=== PATIENT | female | born 1930 | race Caucasian/White ===

== ENCOUNTER 2019-02-20 18:01 | Emergency (ER) | payer MEDICARE, OTHER ==
[~2019-02-20] VITALS: Ht 149.9 cm; Wt 61.2 kg
--- OUTSIDE RECORDS SUMMARY | 2019-02-20 18:05 | XMS REPORT ---
Author Author ARMEN ROSAS [facility] Address [address] [place] [address] Care Team Providers Care Prover Name Role Phone ARMEN ROSAS Unavailable PROBLEMS Unknown Problems ALLERGIES No Information ENCOUNTERS Encounter Location Date Diagnosis [facility] [id number] [place] [phone] Jun, Encounter for immunization Z23 [facility] [id number] [place] [phone] Jun, Encounter for immunization Z23 [facility] [id number] [place] [phone] Jun, [facility] [id number] [place] [phone] Jun, [facility] [id number] [place] [phone] Jun, [facility] [id number] [place] [phone] Jun, [facility] [id number] [place] [phone] Jul, IMMUNIZATIONS Vaccine Route Administration Date Status FLULAVAL QUAD 0.5ML (6 MO & UP) 2018 IM Intramuscular Jun 30, 2018 Administered SOCIAL HISTORY Never Assessed REASON FOR VISIT Flu shot PLAN OF CARE VITAL SIGNS MEDICATIONS Unknown Medications RESULTS No Results PROCEDURES Procedure Date Ordered Result Body Site FLULAVAL QUAD 0.5ML (6 MO & UP) 2018 Jun 30, 2018 ADMN FLU VAC NO FEE SCHED SAME DAY Jun 30, 2018 SINGLE IMMUNIZATION ADMIN Jun 30, 2018 INSTRUCTIONS MEDICATIONS ADMINISTERED No Known Medications
[2019-02-20] MEDS ORDERED: NS IV 1000 ML 1,000 ML IV ONE ×3 (18:06→18:38)
--- OUTSIDE RECORDS SUMMARY | 2019-02-20 18:06 | XMS REPORT | Continuity of Care Document ---
Author Organization Unknown Address Unknown Allergies Active Description Code Type Severity Reaction Onset Reported/Identified Relationship to Patient Clinical Status Yes ASPIRIN SEVERE OTHER Yes CEPHALOSPORINS UNKNOWN UNKNOWN Yes CIPROFLOXACIN UNKNOWN OTHER Yes DESMOPRESSIN SEVERE OTHER Yes MYRBETRIQ SEVERE OTHER Medications Medication Packaging Start Date Stop Date Route Dosage Sig LACTATED RINGERS 1000CC IV BAG INJ ml 02/20/2018 02/27/2018 CONTINUOUSEVERY 0 Hour LACTATED RINGERS 1000CC IV BAG INJ ml 04/03/2018 04/10/2018 CONTINUOUSEVERY 0 Hour ONDANSETRON VIAL INJ 4 MG/2CC (ZOFRAN 2CC VIAL) MG 12/19/2018 12/21/2018 PRN Q6H ACETAMINOPHEN ORAL TABLET 325mg(Tylenol) MG 12/20/2018 01/19/2019 PRN EVERY 6 Hour POLYETHYLENE GLYCOL POWDER UD PWD (MIRALAX 17GM UNIT DOSE PAKS) gm 12/20/2018 12/26/2018 BID&0800,2000 LORATADINE TAB 10 MG (CLARITIN) Dose(s) 12/20/2018 12/26/2018 Daily&0900 METOPROLOL XR TAB 25 MG (TOPROL XL) Dose(s) 12/20/2018 12/26/2018 Daily&0900 MultiVits (Thera M Plus) (jrmcmubc-wxze-[id number]) oral tablet Dose(s) 12/20/2018 01/18/2019 Daily&0900 MIRTAZAPINE TAB 15 MG (REMERON) MG 12/20/2018 12/26/2018 QHS&2100 Problems Date Dx Coded Attending Type Code Diagnosis Diagnosed By 06/21/2017 LAN HUERTA 401.9 UNSPECIFIED ESSENTIAL HYPERTENSION 06/21/2017 LAN HUERTA I10 ESSENTIAL (PRIMARY) HYPERTENSION 06/21/2017 LAN HUERTA 401.9 UNSPECIFIED ESSENTIAL HYPERTENSION 06/21/2017 HUERTA, LAN W I10 ESSENTIAL (PRIMARY) HYPERTENSION 06/21/2017 DEANNA, LAN W 401.9 UNSPECIFIED ESSENTIAL HYPERTENSION 06/21/2017 DEANNA, LAN W I10 ESSENTIAL (PRIMARY) HYPERTENSION 10/11/2017 DEANNA, LAN W 780.2 SYNCOPE AND COLLAPSE 10/11/2017 DEANNA, LAN W 789.09 ABDOMINAL PAIN, OTHER SPECIFIED SITE; MULTIPLE SITES 10/11/2017 DEANNA, LAN W R10.9 UNSPECIFIED ABDOMINAL PAIN 10/11/2017 HUERTA, LAN W R55 SYNCOPE AND COLLAPSE 10/11/2017 HUERTA, LAN W 780.2 SYNCOPE AND COLLAPSE 10/11/2017 HUERTA, LAN W 788.31 URGE INCONTINENCE 10/11/2017 HUERTA, LAN W 789.09 ABDOMINAL PAIN, OTHER SPECIFIED SITE; MULTIPLE SITES 10/11/2017 DEANNA, LAN W E888.9 UNSPECIFIED FALL 10/11/2017 HUERTA, LAN W N39.41 URGE INCONTINENCE 10/11/2017 HUERTA, LAN W R10.9 UNSPECIFIED ABDOMINAL PAIN 10/11/2017 HUERTA, LAN W R55 SYNCOPE AND COLLAPSE 10/11/2017 HUERTA, LAN W W19 UNSPECIFIED FALL 10/11/2017 HUERTA, LAN W 780.2 SYNCOPE AND COLLAPSE 10/11/2017 HUERTA, LAN W 788.31 URGE INCONTINENCE 10/11/2017 HUERTA, LAN W 789.09 ABDOMINAL PAIN, OTHER SPECIFIED SITE; MULTIPLE SITES 10/11/2017 HUERTA, LAN W E888.9 UNSPECIFIED FALL 10/11/2017 HUERTA, LAN W N39.41 URGE INCONTINENCE 10/11/2017 HUERTA, LAN W R10.9 UNSPECIFIED ABDOMINAL PAIN 10/11/2017 HUERTA, LAN W R55 SYNCOPE AND COLLAPSE 10/11/2017 HUERTA, LAN W W19 UNSPECIFIED FALL 10/11/2017 HUERTA, LAN W 780.2 SYNCOPE AND COLLAPSE 10/11/2017 HUERTA, LAN W 788.31 URGE INCONTINENCE 10/11/2017 HUERTA, LAN W 789.09 ABDOMINAL PAIN, OTHER SPECIFIED SITE; MULTIPLE SITES 10/11/2017 HUERTA, LAN W E888.9 UNSPECIFIED FALL 10/11/2017 HUERTA, LAN W N39.41 URGE INCONTINENCE 10/11/2017 STEPHANIE HUERTAHEL W R10.9 UNSPECIFIED ABDOMINAL PAIN 10/11/2017 HUERTASTEPHANIE RUSSELLHEL W R55 SYNCOPE AND COLLAPSE 10/11/2017 HUERTALAN RUSSELL W W19 UNSPECIFIED FALL 10/18/2017 STEPHANIE HUERTAHEL A 276.1 HYPOSMOLALITY AND/OR HYPONATREMIA 10/18/2017 HUERAT, LAN A E87.1 HYPO- OSMOLALITY AND HYPONATREMIA 10/18/2017 HUERTA, LAN A 276.1 HYPOSMOLALITY AND/OR HYPONATREMIA 10/18/2017 HUERTA, LAN A E87.1 HYPO- OSMOLALITY AND HYPONATREMIA 10/18/2017 HUERTA, LAN A 276.1 HYPOSMOLALITY AND/OR HYPONATREMIA 10/18/2017 HUERTA LAN A E87.1 HYPO- OSMOLALITY AND HYPONATREMIA 10/26/2017 HUERTA, LAN W 298.9 UNSPECIFIED PSYCHOSIS 10/26/2017 DEANNA LAN W 780.97 ALTERED MENTAL STATUS 10/26/2017 HUERTA, LAN W R40.1 STUPOR 10/26/2017 HUERTA, LAN W R41.82 ALTERED MENTAL STATUS, UNSPECIFIED 10/26/2017 HUERTA, LAN W 298.9 UNSPECIFIED PSYCHOSIS 10/26/2017 HUERTA, LAN W 780.97 ALTERED MENTAL STATUS 10/26/2017 HUERTA LAN W R40.1 STUPOR 10/26/2017 HUERTA LAN W R41.82 ALTERED MENTAL STATUS, UNSPECIFIED 02/14/2018 DEANNA LAN W 533.90 PEPTIC ULCER OF UNSPECIFIED SITE, UNSPECIFIED ACUTE OR CHRONIC, WITHOUT MENTION OF HEMORRHAGE OR PERFORATION, WITHOUT MENTION OF OBSTRUCTION 02/14/2018 LAN HUERTA W 578.1 BLOOD IN STOOL 02/14/2018 DEANNA LAN A 780.2 SYNCOPE AND COLLAPSE 02/14/2018 DEANNA LAN W K27.9 PEPTIC ULCER, SITE UNSPECIFIED, UNSPECIFIED ACUTE OR CHRONIC, WITHOUT HEMORRHAGE OR PERFORATION 02/14/2018 LAN HUERTA W K92.1 MELENA 02/14/2018 DEANNA LAN A R55 SYNCOPE AND COLLAPSE 02/14/2018 DEANNA LAN W 533.90 PEPTIC ULCER OF UNSPECIFIED SITE, UNSPECIFIED ACUTE OR CHRONIC, WITHOUT MENTION OF HEMORRHAGE OR PERFORATION, WITHOUT MENTION OF OBSTRUCTION 02/14/2018 STEPHANIE HUERTAHEL W 578.1 BLOOD IN STOOL 02/14/2018 STEPHANIE HUERTAHEL A 780.2 SYNCOPE AND COLLAPSE 02/14/2018 LAN HUERTA W K27.9 PEPTIC ULCER, SITE UNSPECIFIED, UNSPECIFIED ACUTE OR CHRONIC, WITHOUT HEMORRHAGE OR PERFORATION 02/14/2018 STEPHANIE HUERTAHEL W K92.1 MELENA 02/14/2018 STEPHANIE HUERTAEBONIE [place] R55 SYNCOPE AND COLLAPSE 02/20/2018 jR Lawrence 285.9 02/20/2018 Rj Lawrence 532.30 ACUTE DUODENAL ULCER WITHOUT MENTION OF HEMORRHAGE OR PERFORATION, WITHOUT MENTION OF OBSTRUCTION 02/20/2018 Rj Lawrence 535.50 UNSPECIFIED GASTRITIS AND GASTRODUODENITIS, WITHOUT MENTION OF HEMORRHAGE 02/20/2018 Rj Lawrence 535.60 DUODENITIS, WITHOUT MENTION OF HEMORRHAGE 02/20/2018 Rj Lawrence 562.12 DIVERTICULOSIS OF COLON WITH HEMORRHAGE 02/20/2018 Rj Lawrence 780.79 02/20/2018 Rj Lawrence 787.7 02/20/2018 Rj Lawrence D64.9 ANEMIA, UNSPECIFIED 02/20/2018 Rj Lawrence K26.3 ACUTE DUODENAL ULCER WITHOUT HEMORRHAGE OR PERFORATION 02/20/2018 Rj Lawrence K29.60 OTHER GASTRITIS WITHOUT BLEEDING 02/20/2018 Rj Lawrence K29.80 DUODENITIS WITHOUT BLEEDING 02/20/2018 Rj Lawrence K44.9 DIAPHRAGMATIC HERNIA WITHOUT OBSTRUCTION OR GANGRENE 02/20/2018 Rj Lawrence K57.30 DVRTCLOS OF LG INT W/O PERFORATION OR ABSCESS W/O BLEEDING 02/20/2018 Rj Lawrence R19.5 OTHER FECAL ABNORMALITIES 02/20/2018 Rj Lawrence R53.1 WEAKNESS 04/03/2018 Rj Lawrence 535.10 ATROPHIC GASTRITIS, WITHOUT MENTION OF HEMORRHAGE 04/03/2018 Lawrence, Rj Jacob W 552.3 DIAPHRAGMATIC HERNIA WITH OBSTRUCTION 04/03/2018 Rj Lawrence Jacob W K29.30 CHRONIC SUPERFICIAL GASTRITIS WITHOUT BLEEDING 04/03/2018 Rj Lawrence W K44.9 DIAPHRAGMATIC HERNIA WITHOUT OBSTRUCTION OR GANGRENE 05/03/2018 LAN HUERTA W 280.9 IRON DEFICIENCY ANEMIA, UNSPECIFIED 05/03/2018 DEANNA, LAN W 401.0 MALIGNANT ESSENTIAL HYPERTENSION 05/03/2018 HUERTA, LAN W D50.1 SIDEROPENIC DYSPHAGIA 05/03/2018 HUERTA, LAN W I10 ESSENTIAL (PRIMARY) HYPERTENSION 05/03/2018 HUERTA, LAN W 280.9 IRON DEFICIENCY ANEMIA, UNSPECIFIED 05/03/2018 HUERTA, LAN W 401.0 MALIGNANT ESSENTIAL HYPERTENSION 05/03/2018 HUERTA, LAN W D50.1 SIDEROPENIC DYSPHAGIA 05/03/2018 HUERTA, LAN W I10 ESSENTIAL (PRIMARY) HYPERTENSION 05/03/2018 STEPHANIE HUERTAHEL W 280.9 IRON DEFICIENCY ANEMIA, UNSPECIFIED 05/03/2018 HUERTA, LAN W 401.0 MALIGNANT ESSENTIAL HYPERTENSION 05/03/2018 HUERTA, LAN W D50.1 SIDEROPENIC DYSPHAGIA 05/03/2018 HUERTA, LAN W I10 ESSENTIAL (PRIMARY) HYPERTENSION 07/24/2018 Cody Queen W 401.0 MALIGNANT ESSENTIAL HYPERTENSION 07/24/2018 Cody Queen A 780.79 OTHER MALAISE AND FATIGUE 07/24/2018 Cody Queen W I10 ESSENTIAL (PRIMARY) HYPERTENSION 07/24/2018 Cody Queen A R53.83 OTHER FATIGUE 08/08/2018 A 780.79 OTHER MALAISE AND FATIGUE 08/08/2018 A R53.83 OTHER FATIGUE 08/09/2018 A 780.79 OTHER MALAISE AND FATIGUE 08/09/2018 A R53.83 OTHER FATIGUE 08/09/2018 A 780.79 OTHER MALAISE AND FATIGUE 08/09/2018 A R53.83 OTHER FATIGUE 11/07/2018 LAN HUERTA W 401.0 MALIGNANT ESSENTIAL HYPERTENSION 11/07/2018 DEANNA, LAN W I10 ESSENTIAL (PRIMARY) HYPERTENSION 11/07/2018 DEANNA LAN W 401.0 MALIGNANT ESSENTIAL HYPERTENSION 11/07/2018 DEANNA, LAN W I10 ESSENTIAL (PRIMARY) HYPERTENSION 12/19/2018 LAN HUERTA Amara 780.2 SYNCOPE AND COLLAPSE 12/19/2018 LAN HUERTA R55 SYNCOPE AND COLLAPSE Procedures There is no data. Results Test Result Range BMP - 06/21/17 17:34 Anion Gap 14 6-14 BUN 24 mg/dL 5-25 Calcium 10.0 mg/dL 8.3-10.4 Chloride 103 mmol/L 95-114 CO2 29 mEq/L 22-33 Creat 0.97 mg/dL 0.50-1.50 eGFR 54 mL/min/1.73m2 >59 Glucose 142 mg/dL 70-110 Osmo 299 280-295 Potassium 4.0 mmol/L 3.5-5.3 Sodium 142 mmol/L 134-148 Comprehensive Metabolic Panel - 10/11/17 18:05 Albumin 4.2 g/dL 3.6-5.1 ALP 81 U/L 35-130 ALT 24 U/L 6-45 Anion Gap 16 6-14 AST 30 U/L 2-40 BUN 13 mg/dL 5-25 Calcium 10.0 mg/dL 8.3-10.4 Chloride 90 mmol/L 95-114 CO2 24 mEq/L 22-33 Creat 0.83 mg/dL 0.50-1.50 eGFR 65 mL/min/1.73m2 >59 Globulin 3.9 g/dL 2.3-3.5 Glucose 93 mg/dL 70-110 Osmo 261 280-295 Potassium 4.4 mmol/L 3.5-5.3 Sodium 126 mmol/L 134-148 TBil 0.5 mg/dL 0.2-1.2 TP 8.1 g/dL 6.0-8.3 Urine Culture - 10/11/17 18:05 PRELIM CULTURE RESULTS No Growth 24 hours FINAL CULTURE RESULTS No Growth 48 hours MEDIA PLATED Setup at 15:04 on 10/12/2017 CULTURE SOURCE VOID CBC with Auto Diff - 02/14/18 17:55 Baso% 4.00 % 0.00-2.50 Eos 0.1 K/uL 0.0-0.7 Eos% 2.0 % 0.0-7.0 Hct 25.8 % 36.0-46.0 Hgb 7.9 Result Verified by Repeat Analysis g/dL 13.0-15.0 Lym 1.66 K/uL 0.60-3.40 Lym% 9.0 % 10.0-50.0 MCH 28.8 pg 27.0-31.0 MCHC 30.6 g/dL 32.0-36.0 MCV 94.2 fL 80.0-97.0 [place]% 14.0 % 0.0-12.0 MPV 11.2 fL 7.4-10.0 [place]% 71.0 % 37.0-80.0 Plt 317 K/uL 150-400 RBC 2.74 M/uL 3.60-5.00 RDW 12.2 % 11.6-14.8 WBC 8.57 K/uL 5.00-10.00 [place] 4.90 K/uL 2.00-6.90 [place] 1.2 K/uL 0.0-0.9 Baso 0.7 K/uL 0.0-0.2 EKG - 02/20/18 07:30 EKG Complete CBC with Auto Diff - 02/20/18 08:14 Baso% 5.70 % 0.00-2.50 Eos 0.1 K/uL 0.0-0.7 Eos% 1.9 % 0.0-7.0 Hct 25.8 % 36.0-46.0 Hgb 8.1 g/dL 13.0-15.0 Lym 1.29 K/uL 0.60-3.40 Lym% 24.4 % 10.0-50.0 MCH 28.9 pg 27.0-31.0 MCHC 31.4 g/dL 32.0-36.0 MCV 92.1 fL 80.0-97.0 [place]% 14.4 % 0.0-12.0 MPV 9.7 fL 7.4-10.0 [place]% 53.6 % 37.0-80.0 Plt 381 K/uL 150-400 RBC 2.80 M/uL 3.60-5.00 RDW 12.1 % 11.6-14.8 WBC 5.29 K/uL 5.00-10.00 [place] 2.84 K/uL 2.00-6.90 [place] 0.8 K/uL 0.0-0.9 Baso 0.3 K/uL 0.0-0.2 Surgical Pathology - 02/20/18 10:09 Surg Path Sent to [facility] CBC with Auto Diff - 04/03/18 07:40 Baso% 4.10 % 0.00-2.50 Eos 0.0 K/uL 0.0-0.7 Eos% 0.6 % 0.0-7.0 Hct 39.5 % 36.0-46.0 Hgb 12.8 g/dL 13.0-15.0 Lym 1.54 K/uL 0.60-3.40 Lym% 22.3 % 10.0-50.0 MCH 29.4 pg 27.0-31.0 MCHC 32.4 g/dL 32.0-36.0 MCV 90.6 fL 80.0-97.0 [place]% 12.9 % 0.0-12.0 MPV 10.2 fL 7.4-10.0 [place]% 60.1 % 37.0-80.0 Plt 203 K/uL 150-400 RBC 4.36 M/uL 3.60-5.00 RDW 14.4 % 11.6-14.8 WBC 6.90 K/uL 5.00-10.00 [place] 4.15 K/uL 2.00-6.90 [place] 0.9 K/uL 0.0-0.9 Baso 0.3 K/uL 0.0-0.2 Surgical Pathology - 04/03/18 08:08 Surg Path Sent to [facility] Ferritin - 05/03/18 18:34 Ferritin 24.30 ng/mL 4.63-204.00 Urinalysis - 07/24/18 14:56 Icotest N/A Negative Urine Volume Urine Volume Sufficient (10mL) Urine-Appearance Hazy Clear Urine-Bacteria Trace Urine-Bilirubin Negative Negative Urine-Blood Negative Negative Urine-Color Yellow Colorless-Lt. Yellow Urine-Epithelial Cells 5-10/HPF Urine-Glucose Negative Negative Urine-Ketones Trace Negative Urine-Leukocytes Negative Negative Urine-Mucus 1+ Urine-Nitrite Negative Negative Urine-Other Urine Saved if Culture Needed (48hrs from time of collection) Urine-pH 5.5 5-8.5 Urine-Protein Trace Negative Urine-RBC Negative Urine-Specific [place] 1.025 1.000-1.030 Urine-WBC 0-2/HPF Urobilinogen 0.2 E.U./dL 0.2-1.0 Thyroid Stimulating Hormone - 07/24/18 14:59 TSH 5.22 mIU/mL 0.32-5.00 BMP - 11/07/18 14:56 Anion Gap 12 6-14 BUN 23 mg/dL 5-25 Calcium 9.4 mg/dL 8.3-10.4 Chloride 102 mmol/L 95-114 CO2 29 mEq/L 22-33 Creat 0.92 mg/dL 0.50-1.50 eGFR 57 mL/min/1.73m2 >59 Glucose 81 mg/dL 70-110 Osmo 290 280-295 Potassium 4.1 mmol/L 3.5-5.3 Sodium 139 mmol/L 134-148 Urine Culture - 12/16/18 17:10 PRELIM CULTURE RESULTS No Growth 24 hours FINAL CULTURE RESULTS <10,000 Gram Positive Mixed Gifty [id number] Skin Contaminant [id number] Further Workup done MEDIA PLATED Setup at 17:14 on 12/16/2018 CULTURE SOURCE void Cardiac Panel - 12/19/18 19:00 CK 57 U/L 26-174 CK-MB 0.6 ng/ml 0.0-9.2 Myoglobin 36.3 ng/ml 1.6-106.0 Troponin <0.020 ng/mL 0.0-0.4 EKG - 12/19/18 19:09 EKG Complete Urinalysis - 12/19/18 19:15 Icotest Negative Negative Urine Crystals Amorphous material: moderate/HPF Urine Volume Urine Volume Insufficient (<10mL) May Affect Microscopic Exam Urine-Appearance Slightly Cloudy Clear Urine-Bacteria Trace Urine-Bilirubin 1+ Negative Urine-Blood Trace-lysed Negative Urine-Color Yellow Colorless-Lt. Yellow Urine-Epithelial Cells 10-20/HPF Urine-Glucose Negative Negative Urine-Ketones 1+ Negative Urine-Leukocytes Negative Negative Urine-Mucus 3+ Urine-Nitrite Negative Negative Urine-Other Culture to follow; cath urine Urine-pH 6.0 5-8.5 Urine-Protein 2+ Negative Urine-RBC 0-3/HPF Urine-Specific [place] 1.020 1.000-1.030 Urine-WBC 2-5/HPF Urobilinogen 0.2 0.2-1.0 Urine Culture - 12/19/18 19:15 PRELIM CULTURE RESULTS No Growth 24 hours FINAL CULTURE RESULTS No Growth 48 hours MEDIA PLATED Setup at 19:18 on 12/19/2018 CULTURE SOURCE cath urine CBC with Manual Diff - 12/20/18 09:10 Band 1 Baso 1 Hct 38.9 % 36.0-46.0 Hgb 12.9 g/dL 13.0-15.0 Lymph 12 MCH 30.5 pg 27.0-31.0 MCHC 33.2 g/dL 32.0-36.0 MCV 92.0 fL 80.0-97.0 [place] 8 Sebas 78 Plt 219 K/uL 150-400 RBC 4.23 M/uL 3.60-5.00 WBC 11.92 K/uL 5.00-10.00 Encounters ACCT No. Visit Date/Time Discharge Status Pt. Type Provider Facility Loc./Unit Complaint [id number] 12/19/2018 20:45:00 12/21/2018 19:07:00 DIS Outpatient DEANNA [facility] MED-SURG [id number] 12/16/2018 17:10:00 12/16/2018 23:59:00 DIS Outpatient Nelson Martinez [id number] 11/07/2018 14:56:00 11/07/2018 23:59:00 DIS Outpatient LAN HUERTA [id number] 07/24/2018 14:18:00 07/24/2018 16:45:[id number]/2018 18:34:00 05/03/2018 23:59:00 DIS Outpatient LAN HUERTA [id number] 04/03/2018 06:50:00 04/03/2018 09:19:00 DIS Outpatient Rj Lawrence [id number] 02/20/2018 07:42:00 02/20/2018 10:22:00 DIS Outpatient Rj Lawrence [id number] 02/14/2018 18:35:00 02/14/2018 23:59:00 DIS Outpatient LAN HUERTA [id number] 10/26/2017 15:25:00 10/26/2017 23:59:00 DIS Outpatient LAN HUERTA [id number] 10/26/2017 00:00:00 10/26/2017 23:59:00 DIS Outpatient LAN HUERTA [id number] 10/18/2017 11:53:00 10/18/2017 23:59:00 DIS Outpatient LAN HUERTA [id number] 10/18/2017 11:40:00 10/18/2017 23:59:00 DIS Outpatient DEANNA LAN [id number] 10/11/2017 18:05:00 10/11/2017 23:59:00 DIS Outpatient HUERTA, LAN [id number] 06/21/2017 17:33:00 06/21/2017 23:59:00 DIS Outpatient STEPHANIE HUERTAHEL [id number] 08/08/2018 14:20:00 Document Registration [id number] 02/17/2018 10:37:33 Document Registration [id number] 12/19/2018 20:45:00 Document Registration
[2019-02-20] MEDS ORDERED: PANTOPRAZOLE 40 MG (PROTONIX) VIAL ONE (18:07)
[2019-02-20] MEDS ORDERED: ONDANSETRON 4 MG/2 ML (SDV) Z0FRAN ONE (18:07)
[2019-02-20] MEDS ORDERED: NS IV 1000 ML 2,000 ML ONE (18:07)
[2019-02-20 18:14] LABS: BASOPHILS % (AUTO) 0 % (0-10); EOSINOPHILS % (AUTO) 0 % (0-10); HEMATOCRIT 29 % (35-52); HEMOGLOBIN 9.3 G/DL (11.5-16.0); LYMPHOCYTES % (AUTO) 30 % (12-44); MEAN CORPUSCULAR HEMOGLOBIN 30 PG (25-34); MEAN CORPUSCULAR HGB CONC 33 G/DL (32-36); MEAN CORPUSCULAR VOLUME 91 FL (80-99); MEAN PLATELET VOLUME 10.3 FL (7.4-10.4); MONOCYTES # (AUTO) 1.3 X 10^3 (0.0-1.0); MONOCYTES % (AUTO) 13 % (0-12); NEUTROPHILS # (AUTO) 5.8 X 10^3 (1.8-7.8); NEUTROPHILS % (AUTO) 57 % (42-75); PLATELET COUNT 253 10^3/uL (130-400); RED CELL DISTRIBUTION WIDTH 12.7 % (10.0-14.5); WHITE BLOOD COUNT 10.2 10^3/uL (4.3-11.0)
[2019-02-20] MEDS ORDERED: PANTOPRAZOLE 40 MG (PROTONIX) VIAL IV ONE (18:15)
[2019-02-20] MEDS ORDERED: ONDANSETRON 4 MG/2 ML (SDV) Z0FRAN IVP ONE (18:15)
[2019-02-20 18:28] LABS: INR 1.1 (0.8-1.4); PROTHROMBIN TIME PATIENT 14.8 SEC (12.2-14.7)
--- NOTE | 2019-02-20 18:31 | ED GI ---
General Chief Complaint: Abdominal/GI Problems Stated Complaint: VOMITING BLOOD Nursing Triage Note: PT BROUGHT IN BY EMS FROM HOME WITH COMPLAINT OF VOMITING, WEAKNESS, AND SYNCOPLE EPISODE. PER FRIEND, PT WAS SITTING IN CHAIR, SLID OUT AND WENT TO THE FLOOR. PT IS ALERT AND KNOWS SHE IS AT THE HOSPITAL. STATES SHE STARTED HAVING ABD PAIN 2 DAYS AGO. LAST BM 2 DAYS AGO. EMS STATES SHE VOMITED ON SCENE. GIVEN 8MG IM ZOFRAN, Sepsis Screen: No Definite Risk Source of Information: Patient (LIMITED HISTORIAN), EMS History of Present Illness Date Seen by Provider: Feb 20, 2019 Time Seen by Provider: 18:00 Initial Comments PT ARRIVES VIA EMS FROM HOME--PT HAS BEEN STAYING WITH FRIEND FOR THE LAST 2-3 WEEKS BECAUSE SHE HAS BEEN VERY WEAK AND "NO ENERGY" FRIEND / FAMILY MEMBER CALLED EMS TODAY BECAUSE PT HAS BEEN DIZZY AND WEAK AND HAS BEEN IN BED, AND WHEN SHE STOOD UP SHE GOT DIZZY, SLID SLOWLY TO THE FLOOR AND PASSED OUT BRIEFLY. NO REPORTED HEAD INJURY OR INJURY OF ANY KIND PT HAS HAD NAUSEA AND COFFEE-GROUND EMESIS OF 500-600 ML, FOR EMS AND HAD BEEN HAVING COFFEE GROUND EMESIS PRIOR TO THEIR ARRIVAL BP WAS 70'S/50'S, THEN UP TO 100/50 EMS UNABLE TO ESTABLISH IV, BUT GAVE ZOFRAN 8 MG IM PT STATES SHE HAD "TERRIBLE PAINS 2 DAYS AGO" IN ABDOMEN, DENIES ABDOMINAL PAIN TODAY LAST BM WAS 2 DAYS AGO PT DENIES PAIN ANYWHERE BP 85/48 ON ARRIVAL TO ER, HR 92, O2 SAT 97% ON ROOM AIR. PT WAS STARTED ON CARAFATE YESTERDAY PER EMS PER MED RECONCILIATION, PT HAS BEEN PRESCRIBED PANTOPRAZOLE AND CARAFATE IN THE PAST, BUT NEITHER IS ON CURRENT MEDICATION LIST. PER MEDICATION LIST, PT TAKES NAPROXEN, WELL METOPROLOL PT HAS 1 PRIOR VISIT HERE IN 2013 AND WAS FOR SYNCOPE DUE TO HYPOTENSION 1844--[id number] IS NOW IN ROOM AND GIVES ADDITIONAL HISTORY--PT HAS HAD BLEEDING ULCERS IN THE LAST FEW MONTHS, HAD EGD BY DR. HUTTON AT [facility], PT HAS BEEN ANEMIC WITH HGB IN 9 RANGE, AND "ALMOST" NEEDED A TRANSFUSION, BUT DID NOT HAVE IT--WAS A COUPLE OF MONTHS AGO, PT HAS NOT HAD IT CHECKED RECENTLY. PT HAS BEEN PRESCRIBED CARAFATE AND PANTOPRAZOLE, BUT IS NOT CLEAR IF SHE HAS BEEN TAKING IT--THOSE MEDICATIONS ARE NOT ON HER CURRENT MEDICATION LIST. PCP: DR. HUERTA Allergies and Home Medications Allergies Coded Allergies: Cephalexin (Unverified Allergy, Unknown, PT DOESNT RECALL, 11/23/13) Patient Home Medication List Home Medication List Reviewed: Yes Review of Systems Review of Systems Constitutional: see HPI, dizziness, malaise, weakness Respiratory: No Symptoms Reported Cardiovascular: Denies Chest Pain; Syncope Gastrointestinal: See HPI, Abdominal Pain, Nausea, Vomiting (COFFEE-GROUND EMESIS) Genitourinary: Other (LAST VOID IS UNKNOWN) Musculoskeletal: no symptoms reported Skin: no symptoms reported Psychiatric/Neurological: See HPI (SYNCOPE); Denies Headache, Denies Numbness, Denies Paresthesia Endocrine: No Symptoms Reported Hematologic/Lymphatic: See HPI Past Eunyhez-Ucduxa-Odcohu Hx Patient Social History Alcohol Use: Denies Use Recreational Drug Use: No Smoking Status: Never a Smoker Recent Foreign Travel: No Contact w/Someone Who Travel: No Recent Infectious Disease Expo: No Immunizations Up To Date Tetanus Booster (TDap): Unknown Date of Influenza Vaccine: Sep 12, 2013 Past Medical History Surgeries: No Respiratory: No Cardiac: Yes Neurological: No Gastrointestinal: No Musculoskeletal: No Endocrine: No Cancer: No Psychosocial: No Integumentary: No Blood Disorders: No Adverse Reaction/Blood Tranf: No Physical Exam Vital Signs Vital Signs - First Documented 02/20/19 02/20/19 18:02 18:27 Temp 96.0 Pulse 86 Resp 17 B/P (MAP) 85/48 (60) Pulse Ox 98 O2 Delivery Room Air O2 Flow Rate 2.00 Capillary Refill : Less Than 3 Seconds Height/Weight/BMI Height: 4'11.00" Weight: 135lbs. oz. 61.428650bv; BMI Method:Stated General Appearance: WD/WN, no apparent distress, other (LETHARGIC, BLANK STARE AT TIMES, HAD A COUPLE OF NEAR-SYNCOPAL EPISODES ON ARRIVAL, AFTER MOVING PT AROUND) HEENT: pale conjunctivae (R), pale conjunctivae (L) Neck: normal inspection Respiratory: normal breath sounds, no respiratory distress, no accessory muscle use Cardiovascular: regular rate, rhythm, no murmur Gastrointestinal: soft, no organomegaly, no pulsatile mass, abnormal bowel sounds (DECREASED), tenderness (DIFFUSE TENDERNESS) Back: no CVA tenderness Neurologic/Psychiatric: records analyst II-XII nml as tested, no motor/sensory deficits, alert, oriented x 3 Skin: cool, diaphoresis, damp, pallor Progress/Results/Core Measures Results/Orders Lab Results Laboratory Tests Test 02/20/19 18:06 02/20/19 18:37 Range/Units White Blood Count 10.2 4.3-11.0 10^3/uL Red Blood Count 3.13 L 4.35-5.85 10^6/uL Hemoglobin 9.3 L 11.5-16.0 G/DL Hematocrit 29 L 35-52 % Mean Corpuscular Volume 91 80-99 FL Mean Corpuscular Hemoglobin 30 25-34 PG Mean Corpuscular Hemoglobin Concent 33 32-36 G/DL Red Cell Distribution Width 12.7 10.0-14.5 % Platelet Count 253 130-400 10^3/uL Mean Platelet Volume 10.3 7.4-10.4 FL Neutrophils (%) (Auto) 57 42-75 % Lymphocytes (%) (Auto) 30 12-44 % Monocytes (%) (Auto) 13 H 0-12 % Eosinophils (%) (Auto) 0 0-10 % Basophils (%) (Auto) 0 0-10 % Neutrophils # (Auto) 5.8 1.8-7.8 X 10^3 Lymphocytes # (Auto) 3.0 1.0-4.0 X 10^3 Monocytes # (Auto) 1.3 H 0.0-1.0 X 10^3 Eosinophils # (Auto) 0.0 0.0-0.3 10^3/uL Basophils # (Auto) 0.0 0.0-0.1 10^3/uL Prothrombin Time 14.8 H 12.2-14.7 SEC INR Comment 1.1 0.8-1.4 Activated Partial Thromboplast Time 24 24-35 SEC Sodium Level 141 135-145 MMOL/L Potassium Level 3.8 3.6-5.0 MMOL/L Chloride Level 101 98-107 MMOL/L Carbon Dioxide Level 30 21-32 MMOL/L Anion Gap 10 5-14 MMOL/L Blood Urea Nitrogen 53 H 7-18 MG/DL Creatinine 1.07 0.60-1.30 MG/DL Estimat Glomerular Filtration Rate 48 BUN/Creatinine Ratio 50 Glucose Level 136 H 70-105 MG/DL Calcium Level 8.9 8.5-10.1 MG/DL Corrected Calcium 9.5 8.5-10.1 MG/DL Magnesium Level 2.1 1.8-2.4 MG/DL Total Bilirubin 0.3 0.1-1.0 MG/DL Aspartate Amino Transf (AST/SGOT) 15 5-34 U/L Alanine Aminotransferase (ALT/SGPT) 13 0-55 U/L Alkaline Phosphatase 67 40-136 U/L Total Protein 6.5 6.4-8.2 GM/DL Albumin 3.3 3.2-4.5 GM/DL Amylase Level 130 H 25-125 U/L Lipase 48 8-78 U/L Urine Color YELLOW Urine Clarity CLEAR Urine pH 6 5-9 Urine Specific [place] 1.015 L 1.016-1.022 Urine Protein 3+ H NEGATIVE Urine Glucose (UA) NEGATIVE NEGATIVE Urine Ketones NEGATIVE NEGATIVE Urine Nitrite NEGATIVE NEGATIVE Urine Bilirubin 2+ H NEGATIVE Urine Urobilinogen 1 NORMAL MG/DL Urine Leukocyte Esterase 1+ H NEGATIVE Urine RBC (Auto) NEGATIVE NEGATIVE Urine RBC NONE /HPF Urine WBC 0-2 /HPF Urine Squamous Epithelial Cells 5-10 /HPF Urine Crystals NONE /LPF Urine Bacteria TRACE /HPF Urine Casts PRESENT /LPF Urine Hyaline Casts >50 H /LPF Urine Mucus NEGATIVE /LPF Urine Culture Indicated NO My Orders Orders - IRVING IGLESIAS DO Ed Iv/Invasive Line Start (02/20/19 18:06) Ekg Tracing (02/20/19 18:06) Catheter(Urinary) Insert & Ass 03,15 (02/20/19 18:06) O2 (02/20/19 18:06) Monitor-Rhythm Ecg Trace Only (02/20/19 18:06) I-Stat Bedside Testing (02/20/19 18:06) Ct Abdomen/Pelvis Wo (02/20/19 18:06) Chest 1 View, Ap/Pa Only (02/20/19 18:06) Amylase (02/20/19 18:06) Cbc With Automated Diff (02/20/19 18:06) Comprehensive Metabolic Panel (02/20/19 18:06) Lipase (02/20/19 18:06) Magnesium (02/20/19 18:06) Protime With Inr (02/20/19 18:06) Partial Thromboplastin Time (02/20/19 18:06) Ua Culture If Indicated (02/20/19 18:06) Red Cells Leukocytes Reduced (02/20/19 18:06) Ed Iv/Invasive Line Start (02/20/19 18:06) Ns Iv 1000 Ml (Sodium Chloride 0.9%) (02/20/19 18:06) Pantoprazole Injection (Protonix Injecti (02/20/19 18:15) Ondansetron Injection (Zofran Injectio (02/20/19 18:15) Type And Screen (02/20/19 18:06) Ondansetron Injection (Zofran Injectio (02/20/19 18:07) Ns Iv 1000 Ml (Sodium Chloride 0.9%) (02/20/19 18:07) Pantoprazole Injection (Protonix Injecti (02/20/19 18:07) Ed Iv/Invasive Line Start (02/20/19 18:35) Ns Iv 1000 Ml (Sodium Chloride 0.9%) (02/20/19 18:35) Ed Iv/Invasive Line Start (02/20/19 18:38) Ns Iv 1000 Ml (Sodium Chloride 0.9%) (02/20/19 18:38) Ns Iv 500 Ml (Sodium Chloride 0.9%) (02/20/19 18:50) Ns Iv 500 Ml (Sodium Chloride 0.9%) (02/20/19 19:03) Ns Iv 500 Ml (Sodium Chloride 0.9%) (02/20/19 19:45) Medications Given in ED Current Medications Medications Dose Ordered Sig/Darryl Route Start Time Stop Time Status Last Admin Dose Admin Ondansetron HCl 8 mg ONCE ONCE IVP 02/20/19 18:15 02/20/19 18:16 DC 02/20/19 18:15 8 MG Pantoprazole 80 mg ONCE ONCE IV 02/20/19 18:15 02/20/19 18:16 DC 02/20/19 18:15 80 MG Sodium Chloride 1,000 ml @ 0 mls/hr Q0M ONCE IV 02/20/19 18:06 02/20/19 18:11 DC 02/20/19 18:08 1,000 MLS/HR Sodium Chloride 1,000 ml @ 0 mls/hr Q0M ONCE IV 02/20/19 18:35 02/20/19 18:36 DC 02/20/19 18:35 1,000 MLS/HR Sodium Chloride 1,000 ml @ 0 mls/hr Q0M ONCE IV 02/20/19 18:38 02/20/19 18:39 DC 02/20/19 18:40 1,000 MLS/HR Vital Signs/I&O 02/20/19 02/20/19 02/20/19 02/20/19 18:02 18:27 19:25 19:40 Temp 96.0 97.4 97.3 Pulse 86 76 76 Resp 17 20 20 B/P (MAP) 85/48 (60) 106/44 120/63 Pulse Ox 98 96 94 O2 Delivery Room Air Nasal Cannula Nasal Cannula Nasal Cannula O2 Flow Rate 2.00 3.00 3.00 02/20/19 21:10 Temp 97.8 Pulse 80 Resp 16 B/P (MAP) 127/79 (95) Pulse Ox 100 O2 Delivery Nasal Cannula O2 Flow Rate 3.00 Blood Pressure Mean: 60 Progress Progress Note : Progress Note BP UP WITH FLUIDS TO > 100 SYSTOLIC AND PULSE DOWN TO 70'S AFTER 3 LITERS OF FLUIDS ALSO INITIATED BLOOD TRANSFUSION DUE TO ACTIVE BLEEDING AND HYPOTENSION WITH SYNCOPE NO VOMITING DURING ER STAY, NAUSEA IMPROVED WITH ZOFRAN NO COMPLAINTS OF PAIN DURING ER STAY Initial ECG Impression Date: Feb 20, 2019 Initial ECG Impression Time: 18:28 Initial ECG Rate: 64 Initial ECG Rhythm: Normal Sinus Initial ECG Impression: Nonspecific Changes (ANTERIOR Q WAVES) Initial ECG Comparisson: Unchanged Diagnostic Imaging Comments CT ABDOMEN/PELVIS--THICKENING OF PYLORUS AND PROXIMAL DUODENUM WITH FOCAL GAS, SUSPECT CONTAINED PERFORATION, DENSITY IN STOMACH--POSSIBLE MASS VS BLOOD FROM BLEEDING ULCER--PER RADIOLOGIST VIA PHONE AT 1918 CXR--NO ACUTE PROCESS, PER RADIOLOGIST REPORT AT 1950 Reviewed: Reviewed by Me, Discussed w/Radiologist Departure Communication (Admissions) NO ICU BEDS AVAILABLE HERE 1925--CALLED [facility], [facility]. [facility] HOSPITALIST, DR. JOSE 1932--SPOKE WITH DR. VÁSQUEZ, SURGEON, ACCEPTS PT --ADVISES ADMIT TO HOSPITALIST/RENTAL SALES AGENT AND HE WILL SEE PT IN CONSULT. WANTS PT DOWN THERE [facility]. [facility] JOSE AGAIN. 1937--SPOKE WITH DR. JOSE, ACCEPTS PT FOR ADMIT TO ICU MULTIPLE AMBULANCES CURRENTLY WITH OTHER TRANSFERS, WILL SEND PT VIA AIR [facility] CONTACTED FOR TRANSPORT 2026--CALLED [facility], STILL NO BED ASSIGNMENT. THEY ADVISE TO SEND PT TO ER AND WILL HOLD PT THERE UNTIL BED IS ASSIGNED. Impression Primary Impression: Acute perforated gastric ulcer with hemorrhage Additional Impressions: Anemia due to GI blood loss Hypotension Disposition: XFER SHT-TRM HOSP Condition: Improved Transfer Transfer Facility: [id number] Method of Transfer: EMS Departure-Patient Inst. Referrals: LAN HUERTA MD (PCP/Family) Primary Care Physician IRVING IGLESIAS DO Feb 20, 2019 18:31
[2019-02-20 18:36] LABS: ALBUMIN 3.3 GM/DL (3.2-4.5); BILIRUBIN,TOTAL 0.3 MG/DL (0.1-1.0); CALCIUM 8.9 MG/DL (8.5-10.1); CREATININE SERUM 1.07 MG/DL (0.60-1.30); MAGNESIUM 2.1 MG/DL (1.8-2.4); POTASSIUM 3.8 MMOL/L (3.6-5.0); TOTAL PROTEIN 6.5 GM/DL (6.4-8.2)
[2019-02-20 18:44] LABS: CLARITY,URINE CLEAR; COLOR,URINE YELLOW; GLUCOSE, URINE (UA) NEGATIVE (NEGATIVE); KETONES,URINE NEGATIVE (NEGATIVE); LEUKOCYTE ESTERASE ,URINE 1+ (NEGATIVE); NITRITE,URINE NEGATIVE (NEGATIVE); PH,URINE 6 (5-9); PROTEIN,URINE 3+ (NEGATIVE); UROBILINOGEN,URINE 1 MG/DL (NORMAL)
[2019-02-20] MEDS ORDERED: NS IV 500 ML 0 ML ONE (18:50)
--- NOTE | 2019-02-20 19:01 | NUR ---
report from conner dobson. pt currently in ct. pt going to be getting blood.
[2019-02-20] MEDS ORDERED: NS IV 500 ML 500 ML ONE (19:03)
[2019-02-20 19:04] LABS: BACTERIA,URINE TRACE /HPF; BILIRUBIN,URINE 2+ (NEGATIVE); HYALINE CASTS, URINE >50 /LPF; WBC,URINE 0-2 /HPF
--- NOTE | 2019-02-20 19:06 | Diagnostic Imaging Report ---
INDICATION: Vomiting, weakness, syncopal episode. Started having abdominal pain 2 days ago.. TECHNIQUE: Single view chest 6:54 PM. CORRELATION STUDY: 01/21/2009 FINDINGS: The heart size, mediastinal configuration and pulmonary vascularity are within normal limits. Calcification aortic arch. The lungs are clear with no consolidating infiltrate. There is no significant effusion or pneumothorax. IMPRESSION: 1. Stable chest demonstrating no acute abnormality. Dictated by: Dictated on workstation # [id number]
--- NOTE | 2019-02-20 19:20 | NUR ---
pt back from ct. pt alert gcs 15. family in room x 1. pt denies chest and abd pain. pt c/o " sort of numb" says its from " stomach stuff going on". denies dyspnea and no acute sighns of dyspnea noted. pt c/o nausea no acute rectal bleeding noted on bed sheets.or thru clothes. not currently vomiting . skin pale cool and dry. pt c/o being cold. pt has several blankets on. pt relates " why am i shalking". pt shivering. lungs cta bilaterally. abd soft but distended nonspecific tenderness to palpation all quads. with palpation. bp machine is 106/44 ausc hr 76 reg ausc resp 20 normal recheck temp 97.4 p ox 3/n/c is 96. tele shows sr 74.
--- NOTE | 2019-02-20 19:23 | NUR ---
another nurse vikas started 3 rd iv site 18 g l ac x 1.
--- NOTE | 2019-02-20 19:24 | NUR ---
blood started 75/hr on pump.
[2019-02-20 19:25] VITALS: BP 106/44
--- NOTE | 2019-02-20 19:31 | Diagnostic Imaging Report ---
PROCEDURE: CT abdomen and pelvis without contrast. TECHNIQUE: Multiple contiguous axial images were obtained through the abdomen and pelvis without the use of intravenous contrast. Auto Exposure Controls were utilized during the CT exam to meet ALARA standards for radiation dose reduction. INDICATION: Vomiting, weakness, and syncopal episode. Started having abdominal pain two days ago. CORRELATION STUDY: None. FINDINGS: Lung bases are generally clear. There is presence of small hiatal hernia. There is diffuse gastric wall thickening. Underlying mass lesion near the fundal aspect would be difficult to exclude. Additionally, there is rather pronounced focal thickening and adjacent inflammatory changes at the pylorus and proximal duodenum. Small amount of surrounding fluid without definitive abscess formation. There is question of small amount of extraluminal gas not excluded. The remainder of the gastrointestinal tract demonstrates moderate severity fecal retention. This is most pronounced at the distal colon. However, no evidence for large fecal impaction. Unenhanced liver, spleen, mildly atrophic pancreas, and adrenal glands appear unremarkable. Mild aortoiliac wall calcification, nonaneurysmal. Small hyperdense foci in the left kidney, nonspecific. Mildly prominent extrarenal pelves, right greater than left. No definitive ureteric calcification along the expected course of either ureter. Urinary bladder is decompressed around a Barba catheter. Uterus is absent. Markedly advanced degenerative changes about the lumbar spine. IMPRESSION: 1. Abnormal appearance about the upper gastrointestinal system. There are more prominent focal inflammatory changes at the distal stomach and proximal duodenum with surrounding inflammatory changes. Findings may reflect contained gastric perforation. 2. There is abnormal density about the fundal aspect of the stomach. This may very well reflect retained gastric contents; however, a mass lesion is not excluded. This could also reflect blood products from perhaps bleeding ulcer. Additionally, there is circumferential wall thickening of hiatal hernia at the gastroesophageal junction. 3. Moderate severity fecal retention with distal colonic fecal loading. However, no evidence for large fecal impaction or bowel obstruction. Telephone call has been made to Dr. Salnias at 7:20 p.m. Dictated by: Dictated on workstation # [id number]
--- NOTE | 2019-02-20 19:37 | NUR ---
pt remains alert gcs 15. family x 1 remains in the room. pt c/o being cold despite lots blankets. pt shivering. i said might be from the ivfs. pt denies chest and abd pain. c/os back pain saying " its numb there" family says pt has h/o back pain. denies dyspnea and no acute sighns of dyspnea noted. pt denies h/a. 2nd liter bolus completed and 3rd liter still going. family and i sighned consent for transfer. blood increased to 150/hr per pump. bp machine is 120/63 ausc hr 76 reg ausc resp 20 normal recheck temp 97.3 p ox 3/n/c is 94. tele shows sr 78.
[2019-02-20 19:40] VITALS: BP 120/63
[2019-02-20] MEDS ORDERED: NS IV 500 ML 500 ML IV SCH (19:45)
--- NOTE | 2019-02-20 20:11 | NUR ---
.pt remains alert gcs 15. family x 1 remains in the room. pt might be ? little confused. pt just says " sort of numb"" im just numb". this the only thing pt keeps saying otherwise pt gcs 15. pt still c/o being cold and shivers occasionally despite lots blankets. pt denies chest and abd pain. denies nausea and no v/d or acute rectal bleeding noted. denies dyspnea and no acute sighns of dyspnea noted. denies h/a. asked about back pain pt said " only when im freezing". 3rd liter bolus completed. blood continues at 150/hr per pump. bp machine is 135/59 ausc hr 80 reg ausc resp 16 normal recheck temp 98.2 p ox 3/n/c is 97. tele shows sr 82
--- NOTE | 2019-02-20 20:25 | NUR ---
informs me pt going by helicopter now since ems has only 1 ground crew. someone calling for the helicopter. i told i still dont have bed assighnment from [facility] yet.
--- NOTE | 2019-02-20 20:25 | NUR ---
[facility] called for air transport- flight accepted
--- NOTE | 2019-02-20 20:36 | NUR ---
pt remains alert gcs 15. family x 1 remains in the room. pt denies chest pain. when asked about abd pain pt says " sort of numb there". pt denies dyspnea and no acute sighns of dyspnea noted. denies h/a and dizziness. no rash noted and skin not red.pt asked about back pain pt said " im numb all over there" then changed to no back pain. denies nausea and no v/d or acute bleeding noted. pt knows npo. padilla appears patent. lungs cta bilaterally. bp machine is 127/79 ausc hr 80 reg ausc resp 16 normal recheck temp 97.8 p ox 3/n/c is 100. tele shows sr 82.blood continues at 150/ hr per pump and is 1/2 - 3/4 completed. pt also c/o being cold despite lots of blankets. pt says " why am i shaling like that" pt appears to be shivering.
--- NOTE | 2019-02-20 20:42 | NUR ---
JUST GOT WORD PT GOING TO [facility] NOW. I WILL CALL REPORT.
--- NOTE | 2019-02-20 20:46 | NUR ---
I JUST TRIED TO CALL REPORT TO [facility]. SPOKE WITH MOSES. SHE WILL CALL ME BACK. THEN SOMEONE HANDED ME A NOTE AND PT GOING TO ICU ROOM NUMBER [id number] AND GAVE ME NUMBER TO CALL REPORT. SOMEONE JUST TOLD ME NOW THE HELICOPTER IS HERE TO TAKE PT.
--- NOTE | 2019-02-20 20:57 | NUR ---
i called report to [facility] admit nurse for room 261. spoke with ana.
--- NOTE | 2019-02-20 21:04 | NUR ---
pt has had no n/v/d or acute rectal bleeding in er visit thus far.
--- NOTE | 2019-02-20 21:04 | NUR ---
i gave report to helicopter staff. i gave then copy of chart including radiology disk. blood will cintinue during transfer. they as well as the admit nurse knows pt only got this 1 unit of blood. 2106 helicopter crew loading pt on there cot. 2109. helicopter is leaving.
[2019-02-20 21:10] VITALS: BP 127/79
== END 2019-02-20 21:10 | disposition short-term general hospital (02) ==
LOC: EDUNIT# 18:01 → ER 18:02
DX: K25.2 Acute gastric ulcer with both hemorrhage and perforation (principal); D64.9 Anemia, unspecified; I95.9 Hypotension, unspecified; Z88.1 Allergy status to other antibiotic agents
CPT/HCPCS: 36415; 36430; 51702; 71045; 74176; 80053; 81000; 82150; 83690; 83735; 85025; 85610; 85730; 86850; 86900; 86901; 86920; 93005; 93041; 96361; 96374; 96375; 99291

== ENCOUNTER → 2019-03-06 | Outpatient (CLI) | payer MEDICARE, OTHER ==
[2019-03-06 20:02] LABS: BILIRUBIN,URINE NEGATIVE (NEGATIVE); CLARITY,URINE CLEAR; COLOR,URINE YELLOW; GLUCOSE, URINE (UA) NEGATIVE (NEGATIVE); KETONES,URINE NEGATIVE (NEGATIVE); LEUKOCYTE ESTERASE ,URINE NEGATIVE (NEGATIVE); NITRITE,URINE NEGATIVE (NEGATIVE); PH,URINE 6 (5-9); PROTEIN,URINE NEGATIVE (NEGATIVE); UROBILINOGEN,URINE NORMAL (NORMAL)
[2019-03-06 20:06] LABS: BACTERIA,URINE TRACE /HPF; SQUAMOUS EPITHELIAL CELL,UR 25-50 /HPF; WBC,URINE 0-2 /HPF
[2019-03-06 20:07] LABS: HYALINE CASTS, URINE RARE /LPF
== END ==
LOC: LABNPT 18:43
PROVIDERS: ATTEND Family Medicine
DX: N39.0 Urinary tract infection, site not specified (principal)
CPT/HCPCS: 81000